=== PATIENT | male | born 1955 | race Caucasian/White ===

== ENCOUNTER 2018-08-21 08:45 | Day surgery (SDC) | payer MEDICARE, OTHER ==
[2018-08-18 16:13] VITALS: BMI 25.2
[~2018-08-21 08:45] MED LIST: LACTATED RINGERS 1,000 ML IV SCH; LIDOCAINE 1% 20 ML VIAL (10MG/ML) FOR IV START INTRADERMA PRN; MIDAZOLAM 2 MG/2 ML VIAL IV PRN
[2018-08-21 09:00] VITALS: RESP 16; TEMP 98.1
[2018-08-21] MEDS ORDERED: LIDOCAINE 1% INJ 10MG/ML (20 ML MDV) ONE (09:26)
[2018-08-21] MEDS ORDERED: PROPOFOL 10 MG/ML 20 ML VIAL IV ONE (09:26)
--- NOTE | 2018-08-21 09:38 | P.GSHP ---
History of Present Illness H&P Date: 08/21/18 Chief Complaint: Screening colonoscopy Is a 62-year-old male presents today for screening colonoscopy. Patient denies a any GI complaints. His last colonoscopy was over 10 years ago. Past Medical History Past Medical History: Asthma, Chest Pain / Angina, Heart Failure Additional Past Medical History / Comment(s): SHORTNESS OF BREATH W/ ACTIVITY. VFIB, Defibrillator, cardiomyopathy History of Any Multi-Drug Resistant Organisms: None Reported Past Surgical History: AICD, Appendectomy, Ear Surgery, Orthopedic Surgery, Pacemaker, Tonsillectomy Additional Past Surgical History / Comment(s): MITRAL VALVE REPLACEMENT (BOVINE) ; LATER HAD REPAIR 2005. Past Anesthesia/Blood Transfusion Reactions: No Reported Reaction Type of Cardiac Device: AICD Device Placement Date:: 2009 Smoking Status: Former smoker - Past Family History Mother Family Medical History: No Reported History Medications and Allergies Home Medications Medication Instructions Recorded Confirmed Type Acetaminophen-Codeine 300-30mg 1 tab PO TID 10/25/15 08/21/18 History [Tylenol w/codeine #3] Cyclobenzaprine [Flexeril] 10 mg PO TID 10/25/15 08/21/18 History Furosemide [Lasix] 40 mg PO DAILY 10/25/15 08/21/18 History Lisinopril [Zestril] 5 mg PO DAILY 10/25/15 08/21/18 History Metoprolol Tartrate [Lopressor] 100 mg PO BID 10/25/15 08/21/18 History Simvastatin [Zocor] 40 mg PO HS 10/25/15 08/21/18 History Spironolactone 50 mg PO DAILY 10/25/15 08/21/18 History Warfarin Sodium [Coumadin] 5 mg PO DAILY 03/17/16 08/21/18 History ALPRAZolam [Xanax] 0.5 mg PO Q8HR PRN 08/18/18 08/21/18 History Albuterol Inhaler [Ventolin Hfa 1 - 2 puff INHALATION RT-Q6H PRN 08/18/18 History Inhaler] Allergies Allergy/AdvReac Type Severity Reaction Status Date / Time No Known Allergies Allergy Verified 08/18/18 16:01 Surgical - Exam Vital Signs Temp Pulse Resp BP Pulse Ox 98.1 F 74 16 137/83 98 08/21/18 08:57 08/21/18 08:57 08/21/18 08:57 08/21/18 08:57 08/21/18 08:57 - General well developed, no distress - Eyes PERRL - ENT normal pinna - Neck no masses - Respiratory normal expansion - Cardiovascular Rhythm: regular - Abdomen Abdomen: soft, non tender Assessment and Plan Assessment: We'll perform screening colonoscopy
--- NOTE | 2018-08-21 10:08 | P.OP ---
Date of Procedure: 08/21/18 Preoperative Diagnosis: Screening colonoscopy Postoperative Diagnosis: Normal colon Procedure(s) Performed: Colonoscopy Anesthesia: MAC Surgeon: Jose Nunez Pathology: none sent Condition: stable Disposition: PACU Description of Procedure: PROCEDURE: The patient was placed on the endoscopy table in the lateral position. Digital rectal examination was performed which revealed no abnormalities. The prostate was symmetrical without nodules. Flexible colonoscope was then placed in the patient's anus and passed throughout the entire colon. The ileocecal valve was visualized. The cecum, ascending, transverse, descending and sigmoid colon were normal. The rectum was normal as well. There were no masses, polyps or diverticula noted in the entire colon. SUMMARY OF FINDINGS: Normal colonoscopy.
[2018-08-21 10:13] VITALS: BP 102/72; PULSE 72
== END 2018-08-21 10:28 | disposition home or self-care (01) ==
LOC: ORWHC2ENDO 08:45
PROVIDERS: ATTEND Surgery
DX: Z12.11 Encounter for screening for malignant neoplasm of colon (principal); J45.909 Unspecified asthma, uncomplicated; I50.9 Heart failure, unspecified; I49.01 Ventricular fibrillation; I42.9 Cardiomyopathy, unspecified; Z95.810 Presence of automatic (implantable) cardiac defibrillator; Z95.4 Presence of other heart-valve replacement; Z87.891 Personal history of nicotine dependence; Z79.01 Long term (current) use of anticoagulants; Z79.891 Long term (current) use of opiate analgesic; Z79.899 Other long term (current) drug therapy; I25.10 Atherosclerotic heart disease of native coronary artery without angina pectoris; I10 Essential (primary) hypertension; E78.5 Hyperlipidemia, unspecified
CPT/HCPCS: J2001; J2704; G0121